=== PATIENT | male | born 1990 | race African-American/Black ===

== ENCOUNTER 2020-10-10 05:29 | Emergency (ER) | payer OTHER ==
[2020-10-10] MEDS ORDERED: Sodium Chloride 0.9% 0 ML ONE (06:04)
[2020-10-10] MEDS ORDERED: Sodium Chloride 0.9% 1,000 ML ONE (06:04)
[2020-10-10] MEDS ORDERED: diphenhydrAMINE 50 MG/ML VIAL ONE (06:04)
[2020-10-10] MEDS ORDERED: Metoclopramide HCl 10 MG/2 ML VIAL ONE ×2 (06:04→07:29)
[2020-10-10 06:05] LABS: #Basophils 0.1 thou/uL (0.0-0.2); #Eosinphils 0.1 thou/uL (0.0-0.7); #Lymphocytes 1.2 thou/uL (1.20-3.40); #Monocytes 0.5 thou/uL (0.11-0.59); #Neutrophils 4.3 thou/uL (1.40-6.50); %Basophils 0.9 % (0.0-1.0); %Eosinophils 1.3 % (0.0-10.0); %Lymphocytes 19.6 % (21.0-51.0); %Monocytes 8.2 % (0.0-10.0); %Neutrophils 70.1 % (42.0-75.0); Hemoglobin 15.2 g/dL (14.0-18.0); Mean Corpuscular HGB CONC 33.1 g/dL (32.0-36.0); Mean Corpuscular Hemoglobin 29.7 pg (27.0-31.0); Mean Platelet Volume 8.7 fL (7.4-10.4); Platelet Count 187 thou/uL (130-400); RBC Distribution Width 11.4 % (11.5-14.5); Red Blood Cell (RBC) Count 5.09 mill/uL (4.70-6.10); White Blood Cell (WBC) Count 6.2 thou/uL (4.8-10.8)
[2020-10-10 06:21] LABS: ALT (SGPT) 33 U/L (8-55); AST (SGOT) 21 U/L (5-34); Albumin 4.1 g/dL (3.5-5.0); Alkaline Phosphatase 42 U/L (40-110); Anion Gap 10 mmol/L (10-20); BUN (Urea Nitrogen) 10 mg/dL (8.9-20.6); Bilirubin, Total 0.5 mg/dL (0.2-1.2); Calc. Creatinine Clearance 0 mL/min (70-130); Calcium 9.5 mg/dL (7.8-10.44); Carbon Dioxide 30 mmol/L (22-29); Chloride 103 mmol/L (98-107); Globulin 2.6 g/dL (2.4-3.5); Glucose 111 mg/dL (70-105); Potassium 3.6 mmol/L (3.5-5.1); Protein, Total 6.7 g/dL (6.0-8.3); Sodium 139 mmol/L (136-145)
[2020-10-10] MEDS ORDERED: methylPREDNISolone Sod Succ/PF 125 MG/2 ML VIAL ONE (07:27)
[2020-10-10] MEDS ORDERED: Magnesium 2 GM/50 ML BAG (IN WATER) ONE (07:27)
[2020-10-10] MEDS ORDERED: Metoclopramide HCl 10 MG TAB ONE (07:27)
[2020-10-10] MEDS ORDERED: Sodium Chloride 0.9% 100 ML ONE (07:27)
== END 2020-10-10 11:38 ==
LOC: NAV ERS 05:29
DX: R51.9 Headache, unspecified (principal); I10 Essential (primary) hypertension; Z79.899 Other long term (current) drug therapy
CPT/HCPCS: 70450; 80053; 85025; 85652; 86140; 96365; 96367; 96375; J1200; J2765; J2930; J3475; J7050